=== PATIENT | female | born 1960 | race Caucasian/White ===

== ENCOUNTER 2017-08-02 00:15 | Emergency (ER) | payer OTHER ==
[~2017-08-02] VITALS: Ht 165.1 cm; Wt 59.0 kg
[~2017-08-02 00:15] MED LIST: CIPRODEX OTIC7.5 ML AD
[2017-08-02] MEDS ORDERED: TRAMADOL HCL50 MG PO (00:45)
[2017-08-02] MEDS ORDERED: AUGMENTIN 875-1 EACH PO (00:46)
== END 2017-08-02 01:06 | disposition home or self-care (01) ==
LOC: ED 00:15
DX: H66.93 Otitis media, unspecified, bilateral (principal); F17.200 Nicotine dependence, unspecified, uncomplicated
CPT/HCPCS: 99283

== ENCOUNTER 2017-08-27 11:30 | Emergency (ER) | payer OTHER ==
[~2017-08-27] VITALS: Ht 165.1 cm; Wt 59.0 kg
[~2017-08-27 11:30] MED LIST changes: +AUGMENTIN 875-1 EACH PO; +TRAMADOL HCL50 MG PO
== END 2017-08-27 11:50 | disposition home or self-care (01) ==
LOC: ED 11:30
DX: H92.09 Otalgia, unspecified ear (principal)

== ENCOUNTER 2023-06-20 19:54 | Emergency (ER) | payer OTHER, MEDICARE ==
[~2023-06-20] VITALS: Ht 157.5 cm; Wt 82.0 kg
[2023-06-20] MEDS ORDERED: AMLODIPINE BESYL5 MG PO (20:05)
[2023-06-20] MEDS ORDERED: LEVOTHYROXINE50 MCG PO (20:05)
[2023-06-20 21:05] VITALS: BP 156/92
== END 2023-06-20 21:05 | disposition home or self-care (01) ==
LOC: ED 19:54
DX: S46.911A Strain of unspecified muscle, fascia and tendon at shoulder and upper arm level, right arm, initial encounter (principal); F17.200 Nicotine dependence, unspecified, uncomplicated; W18.39XA Other fall on same level, initial encounter; Z79.890 Hormone replacement therapy
CPT/HCPCS: 73030; 99283-25